=== PATIENT | male | born 1990 | race Caucasian/White ===

== ENCOUNTER 2020-07-12 19:44 | Emergency (ER) | payer OTHER ==
[2020-07-13] MEDS ORDERED: DECADRON6 MG PO (02:13)
[2020-07-13] MEDS ORDERED: AZITHROMYCIN250 MG PO (02:13)
== END 2020-07-13 02:30 | disposition home or self-care (01) ==
LOC: ER1 19:44
DX: U07.1 COVID-19 (principal); Z79.899 Other long term (current) drug therapy
CPT/HCPCS: 71045; 99284; M0245